=== PATIENT | female | born 1970 | race Asian ===

== ENCOUNTER 2017-11-19 03:42 | Emergency (ER) | payer OTHER | END 2017-11-19 05:05 | disposition home or self-care (01) | LOC: E/R 03:42 | DX: S80.01XA Contusion of right knee, initial encounter (principal); S80.02XA Contusion of left knee, initial encounter; I10 Essential (primary) hypertension; E11.9 Type 2 diabetes mellitus without complications; C50.911 Malignant neoplasm of unspecified site of right female breast; W10.9XXA Fall (on) (from) unspecified stairs and steps, initial encounter; Y92.89 Other specified places as the place of occurrence of the external cause | CPT/HCPCS: 99283 ==